=== PATIENT | male | born 1935 | race Caucasian/White ===

== ENCOUNTER → 2016-11-19 | Day surgery (SDC) | payer MEDICARE, OTHER ==
[~2016-11-19] MED LIST: Glycopyrrolate 0.2 MG/ML SDV IVPUSH ONE; Lactated Ringers 1,000 ML IV SCH; Propofol 200 MG/20 ML SDV IV ONE
[2016-11-19 08:03] VITALS: BP 108/66
--- NOTE | 2016-11-19 09:21 | OR ---
DATE OF OPERATION: 11/19/2016 PREOPERATIVE DIAGNOSIS: DYSPHAGIA AND ABNORMAL CT OF THE CHEST. POSTOPERATIVE DIAGNOSIS: DYSPHAGIA AND ABNORMAL CT OF THE CHEST. SURGEON: Sd Johnson MD PROCEDURE: FULL-LENGTH EGD WITH BIOPSIES X5, RADHIKA. 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 COMPLICATIONS: None. SPECIMEN: 1. Distal antrum biopsy x2. 2. Fundal biopsy x2. 3. Distal esophageal biopsy x1. 4. RADHIKA. FINDINGS: 1. Full-length EGD. 2. Gastritis, fundus and antrum, with antral erosions. 3. Minimal distal esophageal thickening, unspecified. RECOMMENDATIONS: Medical followup with Dr. Kendall. INDICATIONS: The patient went to see Dr. Kendall for unrelated complaints, had a CT of the chest, and apparently there was some questionable pancreatic mass versus distal esophageal lesion. The patient does have some chronic issues of dysphagia. Dr. Kendall recommended EGD. DESCRIPTION OF PROCEDURE: The patient was prepped and draped, and placed in a left lateral decubitus position. A lubricated Olympus gastroscope was inserted and easily intubated in the esophagus. The esophageal lining was benign in its entire course. The Z-line was crisp and sharp, around 38.5 to 39 cm. No significant hernia present. No obvious spontaneous reflux. Just on the cardia side of the Z-line, there was a small amount of thickening of the lining. We did do a biopsy of that area, but no other lesions or obstructions were found. The scope was intubated into the stomach through the pylorus and into the second portion of the duodenum. The duodenal bulb appeared completely unremarkable. The scope was brought back into the stomach and retroflexed. The upper fundus and cardia were benign. The patient does have some chronic gastritis changes in the fundus. The distal antrum near the pylorus had some more acute changes of gastritis with some focal erosions. Two biopsies of the antrum and fundus were taken in signs and displays sales representative areas. A CLOtest was obtained as well. No other polyps, masses, lesions, or obstructive processes were seen. Air was suctioned from the stomach. The scope was removed without complication. STEPHAN/ALLITA /[id number]
== END ==
LOC: CC.SDS 06:25
PROVIDERS: ATTEND Family Medicine
DX: K29.50 Unspecified chronic gastritis without bleeding (principal); Z88.0 Allergy status to penicillin; Z79.82 Long term (current) use of aspirin; Z79.899 Other long term (current) drug therapy
CPT/HCPCS: 43239; 87081; J2704; J7120; 00740; 88305; 88342

== ENCOUNTER 2017-01-14 17:15 | Emergency (ER) | payer MEDICARE, OTHER ==
[2017-01-14] MEDS ORDERED: Glucagon,Human Recombinant 1 MG Vial IVPUSH ONE ×2 (17:27→18:11)
[2017-01-14] MEDS ORDERED: LORazepam 2 MG/ML Syringe IVPUSH ONE (17:34)
--- NOTE | 2017-01-14 17:34 | EDM.PDOC ---
ED HPI GENERAL MEDICAL PROBLEM - General Chief Complaint: General Stated Complaint: ? pill in throat (came from clinic) Time Seen by Provider: 01/14/17 17:19 Source of Information: Reports: Patient History Limitations: Reports: No Limitations - History of Present Illness INITIAL COMMENTS - FREE TEXT/NARRATIVE: This patient is a 81 year old male that presents to the ER. Patient was sent by PCP from clinic over to the ER. Patient PCP concerned this possibly cardiac. The patient reports that early this morning he took several of his pills at the same time with a sip of water. He reports that since then he has had this sensation of something being stuck in his throat/chest. He reports since then he has been vomiting and spitting up. The patient reports that any time he tries to take a drink, he spits up or vomits. The patient denies perkins, dizziness, d, f, cough, congestion, drainage, cp, soa, abd pain, urinary/bowel changes, rashes. The patient is alert and oriented. Patient also has hiccups. I will attempt Glucagon. Patient is also anxious, will give Ativan. Onset: Today Onset Date: 01/14/17 Onset Time: 07:00 Severity: Mild Improves with: Reports: None Worsens with: Reports: None Associated Symptoms: Reports: Nausea/Vomiting. Denies: Confusion, Chest Pain, Cough, cough w sputum, Diaphoresis, Fever/Chills, Headaches, Loss of Appetite, Malaise, Rash, Seizure, Shortness of Breath, Syncope, Weakness Bilateral Shoulder Pain Score (Numeric/FACES): 3 - Related Data Allergies Allergy/AdvReac Type Severity Reaction Status Date / Time Penicillins Allergy Hives Verified 01/14/17 17:24 Home Meds: Home Meds Levothyroxine 112 mcg PO DAILY 05/06/13 [History] Simvastatin [Zocor] 20 mg PO BEDTIME 06/28/13 [History] Aspirin [Halfprin] 81 mg PO BEDTIME 02/11/15 [History] Ascorbate Calcium [Vitamin C] 1,000 mg PO DAILY 03/15/15 [History] Cholecalciferol (Vitamin D3) [Vitamin D] 2,000 units PO 1200 03/15/15 [History] Ferrous Sulfate 325 mg PO 1200 03/15/15 [History] Fish Oil/DHA/EPA [Fish Oil 1,200 MG] 1 cap PO BID 03/15/15 [History] Folic Acid 0.8 mg PO 1200 03/15/15 [History] Glucosamine HCl/Chondr Workman A Na [Glucosamine-Chondroitin Liq] 30 ml PO DAILY 04/29 [History] Magnesium 3 tab PO DAILY 03/15/15 [History] Psyllium Husk [Metamucil] 1 tsp PO DAILY 03/15/15 [History] Saw Spencer Fruit [Saw Spencer] 1 cap PO BID 03/15/15 [History] Ubidecarenone [Co Q-10] 100 mg PO BEDTIME 03/15/15 [History] Valsartan [Valsartan] 40 mg PO DAILY 03/15/15 [History] Carboxymethylcellulose Sodium [Refresh Tears] 1 each EYEBOTH ASDIRECTED PRN [History] Carvedilol 12.5 mg PO QAM 11/18/16 [History] Furosemide 20 mg PO DAILY 11/18/16 [History] Prednisone [IJD: predniSONE] 20 mg PO DAILY 11/18/16 [History] Amitriptyline [Elavil] 10 mg PO BEDTIME 01/14/17 [History] Carvedilol [Coreg] 0.5 tab PO BEDTIME 01/14/17 [History] Mometasone Furoate 1 applic TOP BID PRN 01/14/17 [History] Social & Family History - Tobacco Use Smoking Status *Q: Never Smoker Years of Tobacco use: 6 Used Tobacco, but Quit: Yes Month Tobacco Last Used: 1978 Second Hand Smoke Exposure: No - Caffeine Use Caffeine Use: Reports: Coffee - Alcohol Use Days Per Week of Alcohol Use: 1 Number of Drinks Per Day: 3 Total Drinks Per Week: 3 - Recreational Drug Use Recreational Drug Use: No ED ROS GENERAL - Review of Systems Review Of Systems: See Below Constitutional: Reports: No Symptoms HEENT: Reports: No Symptoms Respiratory: Reports: No Symptoms Cardiovascular: Reports: No Symptoms Endocrine: Reports: No Symptoms GI/Abdominal: Reports: Nausea, Vomiting, Other (spitting up. Fb throat/chest sensation. ). Denies: Abdominal Pain : Reports: No Symptoms Musculoskeletal: Reports: No Symptoms Skin: Reports: No Symptoms Neurological: Reports: No Symptoms Psychiatric: Reports: Anxiety Hematologic/Lymphatic: Reports: No Symptoms Immunologic: Reports: No Symptoms ED EXAM, GENERAL - Physical Exam Exam: See Below Exam Limited By: No Limitations General Appearance: Alert, WD/WN, No Apparent Distress, Other (spitting up and vomiting.) Eye Exam: Bilateral Eye: Normal Inspection, PERRL Ears: Normal External Exam, Hearing Grossly Normal, Other (Hearing aids in place bilateral. ) Nose: Normal Inspection, Normal Mucosa, No Blood Throat/Mouth: Normal Lips, Normal Teeth, Normal Gums, Normal Oropharynx, Normal Voice, No Airway Compromise, Other (spitting. ) Head: Atraumatic, Normocephalic Neck: Normal Inspection, Supple, Non-Tender, Full Range of Motion Respiratory/Chest: No Respiratory Distress, Lungs Clear, Normal Breath Sounds, No Accessory Muscle Use Cardiovascular: Normal Peripheral Pulses, Regular Rate, Rhythm, No Edema, No Gallop, No JVD, No Murmur, No Rub Peripheral Pulses: 2+: Radial (L), Radial (R), Posterior Tibial (L), Posterior Tibial (R) GI/Abdominal: Normal Bowel Sounds, Soft, Non-Tender, No Organomegaly, No Distention, No Abnormal Bruit, No Mass, Pelvis Stable Back Exam: Normal Inspection, Full Range of Motion Extremities: Normal Inspection, Normal Range of Motion, Non-Tender, No Pedal Edema, Normal Capillary Refill Neurological: Alert, Oriented, Normal Cognition, Normal Gait, No Motor/Sensory Deficits Psychiatric: Anxious Skin Exam: Warm, Dry, Intact, Normal Color, No Rash Lymphatic: No Adenopathy EKG INTERPRETATION EKG Date: 01/14/17 Time: 17:37 Rhythm: NSR Rate (Beats/Min): 66 MD/PQ Interval: with PVCs Comparison: NA - No Prior EKG Course - Vital Signs Last Recorded V/S: Last Vital Signs Temp 98.2 F 01/14/17 18:27 Pulse 77 01/14/17 18:27 Resp 20 01/14/17 18:27 BP 122/56 L 01/14/17 18:27 Pulse Ox 98 01/14/17 18:27 - Orders/Labs/Meds Orders: Active Orders 24 hr Category Date Time Status Chest 2V [CR] Stat Exams 01/14/17 17:24 Taken Sodium Chloride 0.9% [Normal Saline] 500 ml Med 01/14/17 18:00 Active IV .BOLUS Medication Orders Sodium Chloride (Normal Saline) 500 mls @ 500 mls/hr IV .BOLUS JOSEPH Last Admin: 01/14/17 18:00 Dose: 500 mls/hr Labs: Laboratory Tests 01/14/17 01/14/17 Range/Units 17:24 17:24 WBC 12.8 H (5.0-10.0) 10^3/uL RBC 4.96 (4.50-6.00) 10^6/uL Hgb 14.9 (14.0-18.0) g/dL Hct 44.2 (40.0-54.0) % MCV 89.1 (82.0-94.0) fL MCH 30.0 (27.0-32.0) pg MCHC 33.7 (33.0-38.0) g/dL RDW Coeff of Sandra 14.9 (11.0-15.0) % Plt Count 307 (150-400) 10^3/uL Neut % (Auto) 72.3 (35-85) % Lymph % (Auto) 16.9 (10-55) % [place] % (Auto) 8.6 (0-16) % Eos % (Auto) 2.0 (0-5) % Baso % (Auto) 0.2 (0-3) % Neut # (Auto) 9.28 H (1.80-7.00) 10^3/uL Lymph # (Auto) 2.17 (1.00-4.80) 10^3/uL [place] # (Auto) 1.10 H (0.00-0.80) 10^3/uL Eos # (Auto) 0.25 (0.00-0.45) 10^3/uL Baso # (Auto) 0.02 10^3/uL Sodium 139 (136-145) mEq/L Potassium 3.4 L D (3.5-5.0) mEq/L Chloride 101 (98-106) mEq/L Carbon Dioxide 28 (21-32) mmol/L BUN 18 (7-18) mg/dL Creatinine 1.1 (0.7-1.3) mg/dL Est Cr Clr Drug Dosing 55.90 mL/min Estimated GFR (MDRD) > 60 (>=60) mL/min Glucose 153 H D (75-99) mg/dL Calcium 9.6 (8.4-10.1) mg/dL Total Bilirubin 0.8 (0.0-1.0) mg/dL AST 25 (15-37) U/L ALT 23 (12-78) U/L Alkaline Phosphatase 71 (46-116) U/L Creatine Kinase 107 (35-232) U/L Troponin I < 0.017 (0.00-0.06) ng/mL Total Protein 7.6 (6.4-8.2) g/dL Albumin 4.0 (3.4-5.0) g/dL Meds: Medications Generic Name Dose Route Start Last Admin Trade Name Freq PRN Reason Stop Dose Admin Sodium Chloride 500 mls @ 500 mls/hr 01/14/17 18:00 01/14/17 18:00 Normal Saline IV 500 mls/hr .BOLUS JOSEPH Administration Discontinued Medications Generic Name Dose Route Start Last Admin Trade Name Freq PRN Reason Stop Dose Admin Glucagon 1 mg 01/14/17 17:27 01/14/17 17:38 Glucagen IVPUSH 01/14/17 17:28 1 mg ONETIME ONE Administration Glucagon 1 mg 01/14/17 18:11 01/14/17 18:16 Glucagen IVPUSH 01/14/17 18:12 1 mg ONETIME ONE Administration Lorazepam 1 mg 01/14/17 17:34 01/14/17 18:04 Ativan IVPUSH 01/14/17 17:35 1 mg ONETIME ONE Administration Ondansetron HCl 4 mg 01/14/17 17:49 01/14/17 17:56 Zofran IVPUSH 01/14/17 17:50 4 mg NOW STA Administration - Radiology Interpretation Free Text/Narrative:: CXR: Pacemaker. No infiltrates, no pulmonary edema. - Re-Assessments/Exams Free Text/Narrative Re-Assessment/Exam: 01/14/17 18:23 I have given the patient Glucagon x2, Ativan, Zofran. Then, attempted O fluids, he vomited and spit it up again. He is drooling and spitting. Patient troponin and EKG shows not acute RI. I have then called and spoke to Dr. Reese at [facility] in the ER. He has accepted the patient. Departure - Departure Time of Disposition: 18:30 Disposition: DC/Tfer to Acute Hospital 02 Condition: Fair Clinical Impression: Esophageal foreign body Qualifiers: Encounter type: initial encounter Qualified Code(s): T18.108A - Unspecified foreign body in esophagus causing other injury, initial encounter Vomiting Qualifiers: Vomiting type: unspecified Vomiting Intractability: intractable Nausea presence : without nausea Qualified Code(s): R11.11 - Vomiting without nausea - Discharge Information Forms: ED Department Discharge - My Orders Last 24 Hours: My Active Orders 01/14/17 17:24 Chest 2V [CR] Stat 01/14/17 18:00 Sodium Chloride 0.9% [Normal Saline] 500 ml IV .BOLUS - Assessment/Plan Last 24 Hours: My Active Orders 01/14/17 17:24 Chest 2V [CR] Stat 01/14/17 18:00 Sodium Chloride 0.9% [Normal Saline] 500 ml IV .BOLUS Plan: PLEASE SEE RN NOTE FOR PFSH. The patient is being transferred to [facility]. The patient risk of transfer are MVC due to weather, mvc, airway obstruction, aspiration with vomiting, increase in pain, vomiting, spitting, , cardiac arrest. The benefits of transfer are higher level of care, specialist who can perform endoscopy if needed. The benefits of staying in [place] are close to home. The risk of staying in [place] are no specialist, , worsening of condition, no surgery if needed.
[2017-01-14] MEDS ORDERED: Ondansetron 4 MG/2 ML SDV IVPUSH STA (17:49)
[2017-01-14 17:54] LABS: CHLORIDE,CL 101 mEq/L (98-106); SODIUM,NA 139 mEq/L (136-145)
[2017-01-14] MEDS ORDERED: Sodium Chloride 0.9% 500 ML IV SCH (18:00)
[2017-01-14 18:29] VITALS: BP 122/56
== END 2017-01-14 18:55 | disposition critical access hospital (66) ==
LOC: CC.ED 17:15
DX: T18.108A Unspecified foreign body in esophagus causing other injury, initial encounter (principal); R11.11 Vomiting without nausea; Z87.891 Personal history of nicotine dependence; Z79.82 Long term (current) use of aspirin; Z79.899 Other long term (current) drug therapy; Z88.0 Allergy status to penicillin
CPT/HCPCS: 36415; 71020; 80053; 82550; 84484; 85025; 93005; 96361; 96374; 96375; 96376; 99284; J1610; J2060; J2405; J7040; 93010; 99285

== ENCOUNTER 2021-02-21 14:08 | Emergency (ER) | payer MEDICARE, OTHER ==
[2021-02-21] MEDS ORDERED: Levofloxacin 500 MG Tab PO ONE (14:37)
[2021-02-21] MEDS ORDERED: Take Home: Levofloxacin 500 MG Tab, 1 Tab Pack PO ONE (14:39)
[2021-02-21 14:50] VITALS: BP 158/72; PULSE 68
--- NOTE | 2021-02-21 14:52 | EDM.PDOC ---
ED HPI GENERAL MEDICAL PROBLEM - General Chief Complaint: General Stated Complaint: Hematuria Time Seen by Provider: 02/21/21 14:45 Source of Information: Reports: Patient History Limitations: Reports: No Limitations - History of Present Illness INITIAL COMMENTS - FREE TEXT/NARRATIVE: Moiz is an 85 year old male who presents to ER with complaints of urgency and hematuria since yesterday. Noticed "a twinge of blood yesterday and today it has gotten much worse". Feels like can't empty bladder at times. Has history of BPH. No real abdominal pain. No nausea or vomiting. No constipation or diarrhea. No fevers. Has been trying to push fluids but did not see improvement of the blood. Onset: Gradual Duration: Day(s): Location: Reports: Abdomen Quality: Reports: Ache Severity: Mild Associated Symptoms: Denies: Confusion, Chest Pain, Cough, Fever/Chills, Loss of Appetite, Nausea/Vomiting, Shortness of Breath - Related Data Allergies Allergy/AdvReac Type Severity Reaction Status Date / Time Penicillins Allergy Hives Verified 02/21/21 14:53 Home Meds: Home Meds Levothyroxine 112 mcg PO DAILY 05/06/13 [History] Simvastatin [Zocor] 20 mg PO BEDTIME 06/28/13 [History] Aspirin [Halfprin] 81 mg PO BEDTIME 02/11/15 [History] Ascorbate Calcium [Vitamin C] 1,000 mg PO DAILY 03/15/15 [History] Cholecalciferol (Vitamin D3) [Vitamin D] 2,000 units PO 1200 03/15/15 [History] Ferrous Sulfate 325 mg PO 1200 03/15/15 [History] Fish Oil/DHA/EPA [Fish Oil 1,200 MG] 1 cap PO BID 03/15/15 [History] Folic Acid 0.8 mg PO 1200 03/15/15 [History] Glucosamine/Chondr Workman A Sod [Glucosamine-Chondroitin Liq] 30 ml PO DAILY 03/15/15 [History] Magnesium 3 tab PO DAILY 03/15/15 [History] Psyllium Husk [Metamucil] 1 tsp PO DAILY 03/15/15 [History] Saw Arion Fruit [Saw Arion] 1 cap PO BID 03/15/15 [History] Ubidecarenone [Co Q-10] 100 mg PO BEDTIME 03/15/15 [History] Valsartan 40 mg PO DAILY 03/15/15 [History] Carboxymethylcellulose Sodium [Refresh Tears] 1 each EYEBOTH ASDIRECTED PRN 09/09/16 [History] Furosemide 20 mg PO DAILY 11/18/16 [History] Prednisone [IJD: predniSONE] 20 mg PO DAILY 11/18/16 [History] carvediloL [Carvedilol] 12.5 mg PO QAM 11/18/16 [History] Amitriptyline [Elavil] 10 mg PO BEDTIME 01/14/17 [History] Carvedilol [Coreg] 0.5 tab PO BEDTIME 01/14/17 [History] Mometasone Furoate 1 applic TOP BID PRN 01/14/17 [History] Levofloxacin [Levaquin] 500 mg PO DAILY 5 Days #5 tablet 02/21/21 [Rx] Past Medical History HEENT History: Reports: Allergic Rhinitis Cardiovascular History: Reports: Automatic Implantable Cardioverter Defibrillators, CAD, Heart Failure, High Cholesterol, Hypertension, SC Gastrointestinal History: Reports: GERD Genitourinary History: Reports: BPH, Other (See Below) Other Genitourinary History: nocturia Musculoskeletal History: Reports: Arthritis, Osteoarthritis Endocrine/Metabolic History: Reports: Hypothyroidism, Vitamin D Deficiency - Past Surgical History GI Surgical History: Reports: Appendectomy Male Surgical History: Reports: TURP-Transurethral Resection of Prostate Musculoskeletal Surgical History: Reports: Knee Replacement, Shoulder Surgery Social & Family History - Tobacco Use Tobacco Use Status *Q: Unknown Ever Used Tobacco - Caffeine Use Caffeine Use: Reports: Coffee ED ROS GENERAL - Review of Systems Review Of Systems: See Below Constitutional: Denies: Fever, Chills, Malaise, Weakness, Fatigue HEENT: Reports: No Symptoms Respiratory: Denies: Shortness of Breath, Cough Cardiovascular: Denies: Chest Pain, Lightheadedness Endocrine: Denies: Fatigue GI/Abdominal: Denies: Abdominal Pain, Constipation, Diarrhea, Nausea, Vomiting : Reports: Dysuria, Frequency, Hematuria, Urgency, Urinary Retention Musculoskeletal: Reports: No Symptoms Skin: Reports: No Symptoms Neurological: Reports: No Symptoms ED EXAM, GENERAL - Physical Exam Exam: See Below Exam Limited By: No Limitations General Appearance: Alert, WD/WN, No Apparent Distress Head: Normocephalic Neck: Normal Inspection, Supple, Non-Tender Respiratory/Chest: No Respiratory Distress, Lungs Clear, Normal Breath Sounds Cardiovascular: Regular Rate, Rhythm GI/Abdominal: Normal Bowel Sounds, Soft, Non-Tender Neurological: Alert, Oriented Skin Exam: Warm, Dry Course - Vital Signs Last Recorded V/S: Last Vital Signs Temp 98.8 F 02/21/21 14:49 Pulse 68 02/21/21 14:49 Resp 18 02/21/21 14:49 BP 158/72 H 02/21/21 14:49 Pulse Ox 98 02/21/21 14:49 - Orders/Labs/Meds Orders: Active Orders 24 hr Category Date Time Status CULTURE URINE [RM] Stat Lab 02/21/21 14:30 Received Labs: Laboratory Tests 02/21/21 Range/Units 14:19 Urine Color Red (YELLOW) Urine Appearance Cloudy (CLEAR) Urine pH 8.5 H (4.5-8.0) Ur Specific [place] 1.015 (1.003-1.020) Urine Protein >=300 H (NEGATIVE) mg/dL Urine Glucose (UA) 100 H (NEGATIVE) mg/dL Urine Ketones Trace H (NEGATIVE) mg/dL Urine Occult Blood Large H (NEGATIVE) Urine Nitrite Positive H (NEGATIVE) Urine Bilirubin Large H (NEGATIVE) Urine Urobilinogen 2.0 H (0.2-1.0) EU/dL Ur Leukocyte Esterase Large H (NEGATIVE) Urine RBC Packed H (0-5) /HPF Urine WBC Not seen (0-5) /HPF Ur Epithelial Cells Occasional H (NOT SEEN) /HPF Meds: Medications Discontinued Medications Generic Name Dose Route Start Last Admin Trade Name Freq PRN Reason Stop Dose Admin Levofloxacin 500 mg 02/21/21 14:37 Levofloxacin 500 Mg Tab PO 02/21/21 14:38 ONETIME ONE Levofloxacin 1 packet 02/21/21 14:39 Take Home: Levofloxacin 500 Mg Tab, 1 Tab Pack PO 02/21/21 14:40 ONETIME ONE - Re-Assessments/Exams Free Text/Narrative Re-Assessment/Exam: 02/21/21 UA positive for nitrites, bacteria and leukocytes. Large amount of blood. Departure - Departure Time of Disposition: 14:50 Disposition: Home, Self-Care 01 Condition: Fair Clinical Impression: UTI (urinary tract infection), Gross hematuria - Discharge Information *PRESCRIPTION DRUG MONITORING PROGRAM REVIEWED*: No *COPY OF PRESCRIPTION DRUG MONITORING REPORT IN PATIENT CODEY: No Prescriptions: Levofloxacin [Levaquin] 500 mg PO DAILY 5 Days #5 tablet Instructions: Urinary Tract Infection, Adult, [id number], Hematuria, Adult Forms: ED Department Discharge Additional Instructions: 1. Push fluids 2. Tylenol for discomfort 3. Levaquin 500 mg daily for 7 days 4. If have difficulty passing urine due to blood, may need to return for catheter placement 5. Follow up with primary care provider as needed for persisting concerns. Sepsis Event Note (ED) - Evaluation Sepsis Screening Result: No Definite Risk - Focused Exam Vital Signs: Vital Signs Temp Pulse Resp BP Pulse Ox 02/21/21 14:49 98.8 F 68 18 158/72 H 98 - My Orders Last 24 Hours: My Active Orders 02/21/21 14:30 CULTURE URINE [RM] Stat - Assessment/Plan Last 24 Hours: My Active Orders 02/21/21 14:30 CULTURE URINE [RM] Stat
== END 2021-02-21 15:09 | disposition home or self-care (01) ==
LOC: CC.ED 14:08
DX: N39.0 Urinary tract infection, site not specified (principal); R31.0 Gross hematuria; I25.10 Atherosclerotic heart disease of native coronary artery without angina pectoris; E78.00 Pure hypercholesterolemia, unspecified; I25.2 Old myocardial infarction; I11.0 Hypertensive heart disease with heart failure; I50.9 Heart failure, unspecified; Z95.810 Presence of automatic (implantable) cardiac defibrillator; Z88.0 Allergy status to penicillin; Z79.899 Other long term (current) drug therapy; Z79.82 Long term (current) use of aspirin
CPT/HCPCS: 81001; 87086; 87088; 87186; 99283; A9270-GY

== ENCOUNTER 2022-07-15 14:12 | Observation (INO) | payer MEDICARE, OTHER ==
[2022-07-15] MEDS ORDERED: Acetaminophen 325 MG Tab PO PRN (14:57)
[2022-07-15] MEDS ORDERED: Meclizine 12.5 MG Tab PO PRN (14:59)
[2022-07-15] MEDS: Sodium Chloride 0.9% 1,000 ML IV SCH ×2 (15:43→23:18)
[2022-07-15] MEDS ORDERED: Lidocaine 5% 700 MG Patch TRDERM SCH (16:00)
[2022-07-15 16:15] LABS: BASOPHILS ABSOLUTE AUTO 0.04 10^3/uL (0.00-0.50); BASOPHILS PERCENT AUTO 0.5 % (0-1); EOSINOPHILS ABSOLUTE AUTO 0.46 10^3/uL (0.00-1.50); EOSINOPHILS PERCENT AUTO 5.2 % (0-6); HEMATOCRIT 43.1 % (42.0-52.0); HEMOGLOBIN 14.3 g/dL (14.0-18.0); IMMATURE GRAN ABSOLUTE AUTO 0.03 10^3/uL (0.00-0.49); IMMATURE GRAN PERCENT AUTO 0.3 % (0.0-4.9); LYMPHOCYTES ABSOLUTE AUTO 1.86 10^3/uL (0.60-5.00); LYMPHOCYTES PERCENT AUTO 21.1 % (24-44); MEAN CORPUSCULAR HEMOGLOBIN 30.4 pg (27.0-32.0); MEAN CORPUSCULAR HGB CONC 33.2 g/dL (32.0-36.0); MEAN CORPUSCULAR VOLUME 91.7 fL (83.0-97.0); MONOCYTES ABSOLUTE AUTO 0.79 10^3/uL (0.00-1.50); NEUTROPHILS ABSOLUTE AUTO 5.63 x10^3/uL (1.80-8.00); NEUTROPHILS PERCENT AUTO 63.9 % (41-71); PLATELET COUNT,PLT 190 10^3/uL (150-400); WHITE BLOOD CELL COUNT,WBC 8.8 10^3/uL (4.0-11.0)
[2022-07-15] MEDS ORDERED: Promethazine 25 MG Tab PO PRN (16:20)
[2022-07-15 16:30] LABS: ALBUMIN 3.4 g/dL (3.4-5.0); BILIRUBIN TOTAL 0.7 mg/dL (0.0-1.0); CALCIUM 8.7 mg/dL (8.4-10.1); CREATININE 1.3 mg/dL (0.7-1.3); EST CRCL DRUG DOSING (CG) 45.6 mL/min; MAGNESIUM 2.1 mg/dL (1.8-2.4); POTASSIUM,K 4.3 mEq/L (3.5-5.0)
[2022-07-15] MEDS: Lidocaine 5% 700 MG Patch TRDERM SCH (16:50)
[2022-07-15] MEDS ORDERED: Ketorolac 30 MG/ML SDV IVPUSH ONE (17:47)
[2022-07-15] MEDS ORDERED: Polyvinyl Alcohol 1.4% Ophth Soln 15 ML Bottle EYEBOTH PRN (18:49)
[2022-07-15] MEDS ORDERED: Aspirin 81 MG Tab.EC PO SCH (20:00)
[2022-07-15] MEDS ORDERED: FISH OIL PO SCH (20:00)
[2022-07-15] MEDS ORDERED: Non-Formulary Medication 1 Each (Ubidecarenone [Co Q-10] 100 MG Capsule) PO SCH (20:00)
[2022-07-15] MEDS ORDERED: EPA PO SCH (20:00)
[2022-07-15] MEDS ORDERED: DHA PO SCH (20:00)
[2022-07-15] MEDS ORDERED: Simvastatin 40 MG Tab PO SCH (20:00)
[2022-07-15] MEDS ORDERED: SAW PALMETTO 450 MG PO SCH (20:00)
[2022-07-15] MEDS: Acetaminophen/HYDROcodone 325-5 MG Tab PO PRN (22:10)
[2022-07-16] MEDS ORDERED: Pantoprazole 40 MG Tab.CR PO SCH (07:00)
[2022-07-16] MEDS ORDERED: Levothyroxine 100 MCG Tab PO SCH (07:00)
[2022-07-16] MEDS: Sodium Chloride 0.9% 1,000 ML IV SCH (07:22)
[2022-07-16 07:38] VITALS: BP 151/71
[2022-07-16] MEDS: Lidocaine 5% 700 MG Patch TRDERM SCH (07:39)
[2022-07-16 07:40] VITALS: PULSE 61
[2022-07-16] MEDS: Acetaminophen/HYDROcodone 325-5 MG Tab PO PRN (07:44)
[2022-07-16] MEDS ORDERED: Losartan 25 MG Tab PO SCH (08:00)
[2022-07-16] MEDS ORDERED: Psyllium Husk Powder Sugar Free 5.85 GM Packet PO SCH (08:00)
[2022-07-16] MEDS ORDERED: CHONDR SU A SOD PO SCH (08:00)
[2022-07-16] MEDS ORDERED: Ascorbic Acid 500 MG Tab PO SCH (08:00)
[2022-07-16] MEDS ORDERED: Carvedilol 12.5 MG Tab PO SCH (08:00)
[2022-07-16] MEDS ORDERED: Potassium Gluconate (99 MG) 2 MEQ Tab PO SCH (08:00)
[2022-07-16] MEDS ORDERED: Furosemide 20 MG Tab PO SCH (08:00)
[2022-07-16] MEDS ORDERED: GLUCOSAMINE PO SCH (08:00)
[2022-07-16] MEDS ORDERED: [UNRECOGNIZED DRUG - OTHER] PO SCH (08:00)
[2022-07-16] MEDS ORDERED: Cholecalciferol (Vitamin D3) 5,000 UNIT Tab PO SCH (12:00)
[2022-07-16] MEDS ORDERED: Ferrous Sulfate 324 MG Tab.EC PO SCH (12:00)
[2022-07-16] MEDS ORDERED: FOLIC ACID 0.8 MG PO SCH (12:00)
== END 2022-07-16 10:20 | disposition home or self-care (01) ==
LOC: CC.MS 14:12 → UNDOADMOB 14:12 → CC.MS 14:57
PROVIDERS: ADMIT Family Medicine; ATTEND Nurse Practitioner
DX: H81.11 Benign paroxysmal vertigo, right ear (principal); I25.2 Old myocardial infarction; E78.00 Pure hypercholesterolemia, unspecified; I10 Essential (primary) hypertension; I25.10 Atherosclerotic heart disease of native coronary artery without angina pectoris; N40.0 Benign prostatic hyperplasia without lower urinary tract symptoms; M19.90 Unspecified osteoarthritis, unspecified site; E03.9 Hypothyroidism, unspecified; Z88.0 Allergy status to penicillin; Z79.82 Long term (current) use of aspirin; Z79.899 Other long term (current) drug therapy; W18.30XA Fall on same level, unspecified, initial encounter; Y92.009 Unspecified place in unspecified non-institutional (private) residence as the place of occurrence of the external cause
CPT/HCPCS: 36415; 70450; 71046; 80053; 83735; 84484; 85025; 93005; 96361; 96374; 97112-GP; 97161-GP; A9270-GY; G0378; G0379; J1885; J7030